=== PATIENT | female | born 1985 | race Caucasian/White ===

== ENCOUNTER 2018-09-21 11:03 | Emergency (ER) | payer OTHER ==
[~2018-09-21] VITALS: Ht 175.3 cm; Wt 95.5 kg
[~2018-09-21 11:03] MED LIST: BUTA1CAP38 PO
[2018-09-21 11:13] VITALS: Ht 175.3 cm; Wt 95.5 kg
[2018-09-21] MEDS ORDERED: SOD CHLORIDE 0.9% 1,000 ML IV STA (11:32)
[2018-09-21] MEDS ORDERED: KETOROLAC 30 MG INJ IV STA (11:32)
[2018-09-21] MEDS ORDERED: DIPHENHYDRAMINE 50 MG INJ IV STA (11:32)
[2018-09-21] MEDS ORDERED: ONDANSETRON 4 MG INJ IV STA (11:32)
[2018-09-21 12:37] VITALS: BP 119/79; PULSE 69; RESP 20
--- NOTE | 2018-09-21 13:35 | ERD ---
ER Documentation Chief Complaint Chief Complaint migraine headaches HPI 32-year-old female presenting with headaches. Patient states that this feels like her normal migraine headache however she began feeling dizzy and weak. She had no vomiting and no abdominal pain with no blurry vision. Denies any coughing or fevers. Has not taken medications today for her symptoms. Denies medical problems. NKDA. Surgical history ovarian surgery and . Social history denies ROS All systems reviewed and are negative except as per history of present illness. Medications Home Meds Active Scripts Unhvhczwak-Pdeqyrpiqqedi-Lwrwriyp* (Fioricet*) 50-300-40 Mg Capsule, 1 CAP PO Q4H PRN for daily, #30 CAP Prov:JENIFER STATON PA-C 09/21/18 PMhx/Soc Medical and Surgical Hx: pt denies Medical Hx History of Surgery: Yes (C SECTION,OVARIAN CYST REMOVAL) Hx Alcohol Use: No Hx Substance Use: No Hx Tobacco Use: No Smoking Status: Never smoker FmHx Family History: No diabetes, No coronary disease, No other Physical Exam Vitals Vital Signs Date Temp Pulse Resp B/P (MAP) Pulse Ox O2 O2 Flow FiO2 Time Delivery Rate 09/21/18 98.6 69 20 119/79 98 12:37 (92) 09/21/18 99.4 99 20 131/72 99 11:13 (91) Physical Exam GENERAL: The patient is well-appearing, well-nourished, in no acute distress HEENT: Atraumatic. Conjunctivae are pink. Pupils equal, round, and reactive to light. There is no scleral icterus. Tympanic membranes clear bilaterally. Oropharynx clear. CHEST: Clear to auscultation bilaterally. There are no rales, wheezes or rhonchi. HEART: Regular rate and rhythm. No murmurs, clicks, rubs or gallops. EXTREMITIES: Equal pulses bilaterally. There is no peripheral clubbing, cyanosis or edema. No focal swelling or erythema. Full range of motion. NEUROLOGIC: Alert and oriented. Cranial nerves II through XII intact. Motor strength in all 4 extremities with 5 out of 5 strength. Sensation grossly intac t. Normal speech and gait. Babinski negative. Result Diagram: 09/21/18 1138 09/21/18 1138 Results 24 hrs Laboratory Tests Test 09/21/18 11:38 09/21/18 11:42 White Blood Count 7.2 10^3/ul Red Blood Count 4.58 10^6/ul Hemoglobin 13.5 g/dl Hematocrit 41.4 % Mean Corpuscular Volume 90.4 fl Mean Corpuscular Hemoglobin 29.5 pg Mean Corpuscular Hemoglobin Concent 32.6 g/dl Red Cell Distribution Width 12.1 % Platelet Count 272 10^3/UL Mean Platelet Volume 10.0 fl Immature Granulocytes % 0.300 % Neutrophils % 50.4 % Lymphocytes % 40.5 % Monocytes % 6.7 % Eosinophils % 1.5 % Basophils % 0.6 % Nucleated Red Blood Cells % 0.0 /100WBC Immature Granulocytes # 0.020 10^3/ul Neutrophils # 3.6 10^3/ul Lymphocytes # 2.9 10^3/ul Monocytes # 0.5 10^3/ul Eosinophils # 0.1 10^3/ul Basophils # 0.0 10^3/ul Nucleated Red Blood Cells # 0.0 10^3/ul Urine Color YELLOW Urine Clarity CLEAR Urine pH 6.0 Urine Specific [place] 1.012 Urine Ketones NEGATIVE mg/dL Urine Nitrite NEGATIVE mg/dL Urine Bilirubin NEGATIVE mg/dL Urine Urobilinogen NEGATIVE mg/dL Urine Leukocyte Esterase 1+ Gretta/ul Urine Microscopic RBC 1 /HPF Urine Microscopic WBC 2 /HPF Urine Squamous Epithelial Cells FEW /HPF Urine Hemoglobin NEGATIVE mg/dL Urine Glucose NEGATIVE mg/dL Urine Total Protein NEGATIVE mg/dl Sodium Level 139 mmol/L Potassium Level 4.5 mmol/L Chloride Level 104 mmol/L Carbon Dioxide Level 27 mmol/L Anion Gap 8 Blood Urea Nitrogen 12 mg/dl Creatinine 0.56 mg/dl Est Glomerular Filtrat Rate mL/min > 60 mL/min Glucose Level 101 mg/dl Calcium Level 9.3 mg/dl Total Bilirubin 0.4 mg/dl Direct Bilirubin 0.00 mg/dl Indirect Bilirubin 0.4 mg/dl Aspartate Amino Transf (AST/SGOT) 33 IU/L Alanine Aminotransferase (ALT/SGPT) 22 IU/L Alkaline Phosphatase 74 IU/L Total Protein 8.3 g/dl Albumin 4.5 g/dl Globulin 3.80 g/dl Albumin/Globulin Ratio 1.18 POC Beta HCG, Qualitative NEGATIVE Current Medications Medications Dose Sig/Rufino Start Time Status Last (Trade) Ordered Route PRN Stop Time Admin Dose Reason Admin Sodium 1,000 ml @ Q1H STAT 09/21/18 DC 09/21/18 Chloride 1,000 mls/hr IV 11:32 11:40 09/21/18 12:31 Ondansetron 4 mg ONCE STAT 09/21/18 DC 09/21/18 HCl (Zofran IV 11:32 11:41 Inj) 09/21/18 11:35 Ketorolac 30 mg ONCE STAT 09/21/18 DC 09/21/18 Tromethamine IV 11:32 11:49 (Toradol) 09/21/18 11:35 25 mg ONCE STAT 09/21/18 DC 09/21/18 Diphenhydrami IV 11:32 11:41 ne HCl 09/21/18 11:35 (Benadryl) Procedures/MDM ER course: Blood work within normal limits. 1 L normal saline with Toradol and Benadryl given in ED. MDM: 32-year-old female presenting with headache. While in the ER patient's symptoms resolved and she felt much better. I have low suspicion for intracranial hemorrhage or neuro deficit. Patient is discharged with strict ER precautions and told to follow-up with primary care within 1 to 2 days for close evaluation. I have low suspicion for meningitis or sepsis and I do not feel the CT scan is indicated. Patient is discharged and recommended to follow-up with primary care. All questions answered at discharge Departure Diagnosis: Primary Impression: Headache Condition: Stable Patient Instructions: Self-Care for Headaches Referrals: COMMUNITY CLINICS YOU HAVE RECEIVED A MEDICAL SCREENING EXAM AND THE RESULTS INDICATE THAT YOU DO NOT HAVE A CONDITION THAT REQUIRES URGENT TREATMENT IN THE EMERGENCY DEPARTMENT. FURTHER EVALUATION AND TREATMENT OF YOUR CONDITION CAN WAIT UNTIL YOU ARE SEEN IN YOUR DOCTORS OFFICE WITHIN THE NEXT 1-2 DAYS. IT IS YOUR RESPONSIBILITY TO MAKE AN APPOINTMENT FOR FOLOW-UP CARE. IF YOU HAVE A PRIMARY DOCTOR --you should call your primary doctor and schedule an appointment IF YOU DO NOT HAVE A PRIMARY DOCTOR YOU CAN CALL OUR PHYSICIAN REFERRAL HOTLINE AT IF YOU CAN NOT AFFORD TO SEE A PHYSICIAN YOU CAN CHOSE FROM THE FOLLOWING [facility] CL[facility]ICS [facility] [address] [facility]. [facility] [address] [facility]. [facility] [address] [facility]. [facility] [address] [facility]. [facility] [address] [facility] [address] Additional Instructions: FOLLOW UP WITH YOUR PRIMARY CARE PHYSICIAN TOMORROW.Return to this facility if you are not improving as expected. JENIFER STATON PA-C Sep 21, 2018 13:34
== END 2018-09-21 12:44 | disposition home or self-care (01) ==
LOC: FTE 11:03
DX: R51 Headache (principal)
CPT/HCPCS: 36415; 80053; 81001; 81025; 85025; 96361; 96374; 96375; 99284; J1200; J1885; J2405; J7030

== ENCOUNTER 2018-12-04 11:05 | Emergency (ER) | payer OTHER ==
[~2018-12-04] VITALS: Ht 175.3 cm; Wt 99.0 kg
[~2018-12-04 11:05] MED LIST changes: +IBUP-1542 PO
[2018-12-04 11:34] VITALS: Ht 175.3 cm; Wt 99.0 kg
[2018-12-04 14:10] VITALS: BP 130/75; PULSE 68; RESP 18
== END 2018-12-04 14:10 | disposition home or self-care (01) ==
LOC: FTE 11:05
DX: R51 Headache (principal)
CPT/HCPCS: 70450; 81025; 82962